=== PATIENT | male | born 1975 | race African-American/Black ===

== ENCOUNTER 2024-11-05 02:46 | Emergency (ER) | payer MEDICAID ==
[~2024-11-05] VITALS: Ht 170.2 cm; Wt 75.0 kg
[2024-11-05 02:52] VITALS: O2SAT 100
[2024-11-05 03:15] VITALS: BP 120/82; PULSE 66; RESP 16; TEMP 36.8; O2SAT 99
[2024-11-05] MEDS ORDERED: METOCLOPRAMIDE HCL 5MG TABLET PO ONE (04:15)
[2024-11-05] MEDS ORDERED: DIPHENHYDRAMINE 12.5MG/5ML UDC PO ONE (04:15)
[2024-11-05] MEDS ORDERED: KETOROLAC 15MG/ML VIAL IM ONE (04:15)
== END 2024-11-05 05:45 | disposition left against medical advice (07) ==
LOC: ER 03:03
DX: R51.9 Headache, unspecified (principal); Z53.21 Procedure and treatment not carried out due to patient leaving prior to being seen by health care provider
CPT/HCPCS: J8597